=== PATIENT | male | born 1985 | race Caucasian/White ===

== ENCOUNTER 2018-03-15 03:33 | Emergency (ER) | payer MEDICAID ==
[~2018-03-15] VITALS: Ht 188 cm; Wt 10.9 kg
[2018-03-15 04:02] VITALS: BP_SYST 124
--- NOTE | 2018-03-15 04:02 | NUR ---
Patient to ER bed 07 to gown for evaluation. Side rails up.
--- NOTE | 2018-03-15 04:05 | NUR ---
Patient complains of left facial swelling and left upper jaw pain for the last 24 hours. Denies any fever or chill. Tenderness to the left upper gums of the second molar. Reports not taking any medication for pain. Denies any nausea or vomiting, difficulty swalling or shortness of breath. No other complaint/injuries per patient or as noted. Will continue to monitor.
--- NOTE | 2018-03-15 04:11 | NUR ---
ER Dr. Braxton at bedside examining patient.
[2018-03-15] MEDS ORDERED: IBUPROFEN 800 MG TABLET PO ONE (04:15)
[2018-03-15] MEDS ORDERED: AMOXICILLIN 500 MG CAPSULE PO ONE (04:15)
--- NOTE | 2018-03-15 05:05 | NUR ---
Patient given written and verbal discharge instructions and verbalizes understanding. ER MD discussed with patient the results and treatment provided. Patient in stable condition. ID arm band removed. IV catheter removed intact and dressing applied, no active bleeding. Rx of Motrin, Tramadol, Amoxicillin given. Patient educated on pain management and to follow up with PMD. Pain Scale 2/10. Patient has been given pain medication for management at home. Opportunity for questions provided and answered. Medication side effect fact sheet provided.
[2018-03-15 05:08] VITALS: BP_SYST 124
== END 2018-03-15 05:05 | disposition home or self-care (01) ==
LOC: SED 03:33
DX: K04.1 Necrosis of pulp (principal); K04.7 Periapical abscess without sinus; R03.0 Elevated blood-pressure reading, without diagnosis of hypertension
CPT/HCPCS: 99283